=== PATIENT | female | born 2000 | race Caucasian/White ===

== ENCOUNTER 2022-09-27 09:22 | Outpatient (CLI) | payer BC | END 2022-09-27 09:23 | disposition home or self-care (01) | LOC: SCSRAD 09:22 | PROVIDERS: ATTEND Physician Assistant | DX: M25.561 Pain in right knee (principal) ==

== ENCOUNTER 2023-02-21 11:14 | Outpatient (CLI) | payer BC | END 2023-02-21 11:15 | disposition home or self-care (01) | LOC: ULT 11:14 | PROVIDERS: ATTEND Physician Assistant | DX: R10.2 Pelvic and perineal pain (principal); N83.201 Unspecified ovarian cyst, right side | CPT/HCPCS: 76856 ==